=== PATIENT | male | born 1950 | race Caucasian/White ===

== ENCOUNTER 2018-12-08 14:48 | Outpatient (CLI) | payer MEDICARE, BC ==
--- NOTE | 2018-12-08 15:43 | RAD ---
LEFT KNEE RADIOGRAPHS 4 VIEWS: DATE: 12/08/2018. PROVIDED CLINICAL HISTORY: Left knee pain. FINDINGS: There is no evidence for a fracture or other acute osseous abnormality. Alignment appears anatomic. Joint spaces appear preserved. No significant knee joint capsular distention is evident. IMPRESSION: No evidence for an acute osseous abnormality or significant arthropathy. POS: [facility]
== END 2018-12-08 14:49 | disposition home or self-care (01) ==
LOC: BURRAD 14:48
PROVIDERS: ATTEND Family Medicine
DX: M25.562 Pain in left knee (principal)

== ENCOUNTER 2019-06-14 09:57 | Outpatient (CLI) | payer MEDICARE, BC ==
--- NOTE | 2019-06-14 10:36 | ULT ---
Thyroid sonogram HISTORY: Enlarged thyroid gland. FINDINGS: Right thyroid lobe measures up to 5.0 cm in length with a homogeneous echotexture. Along th e lateral aspect of the midportion is a punctate focus of microcalcification with posterior shadowing. No associated mass. Isthmus is 0.5 cm thickness. Left thyroid lobe is 5.0 cm with a homogeneous echotexture. No mass. IMPRESSION: Slightly enlarged thyroid gland, 5.0 cm length. No aggressive lesions are demonstrated.
== END 2019-06-14 09:58 | disposition home or self-care (01) ==
LOC: BURULT 09:57
PROVIDERS: ATTEND Family Medicine
DX: E01.0 Iodine-deficiency related diffuse (endemic) goiter (principal)
CPT/HCPCS: 76536